=== PATIENT | female | born 1985 | race Caucasian/White ===

== ENCOUNTER 2020-12-05 19:00 | Outpatient (CLI) | payer BC | END 2020-12-05 19:01 | disposition home or self-care (01) | LOC: SLEEPLAB 19:00 | PROVIDERS: ATTEND Internal Medicine Critical Care Medicine | DX: G47.33 Obstructive sleep apnea (adult) (pediatric) (principal); G47.00 Insomnia, unspecified; I10 Essential (primary) hypertension; R06.83 Snoring; E66.9 Obesity, unspecified; Z68.30 Body mass index [BMI] 30.0-30.9, adult | CPT/HCPCS: 95806 ==